=== PATIENT | female | born 1960 | race Caucasian/White ===

== ENCOUNTER 2018-11-28 20:12 | Emergency (ER) | payer OTHER ==
[2018-11-28 20:33] VITALS: BP 143/95
--- NOTE | 2018-11-28 20:50 | EDPHY ---
H & P Time Seen by Provider: 11/28/18 20:16 HPI/ROS: This patient injured her calf while hiking 6 hr prior to arrival with her daughter. She explains that she has deconditioned after a year of little exercise and weight gain and [place] with her feet dorsiflexed due to the angle of the incline when she decided to abruptly Sprint toward her daughter was up had and her for step she felt abrupt pop in the medial upper to mid right calf. She had fleeting sharp pain that was severe and since then has a mild discomfort to the area at rest and moderate discomfort with walking. Her daughter drove her here by private vehicle for evaluation of the symptoms. She took ibuprofen prior to arrival with partial relief and notes no other exacerbating factors. She did not fall from the episode ROS: Neuro: No numbness or tingling the affected leg Cardiovascular: No discoloration or significant swelling the affected leg Integumentary: No skin changes to the affected leg Musculoskeletal: No significant knee or ankle pain or swelling in the affected leg. No other injuries 5 point review of symptoms is performed and otherwise negative with exception of pertinent positives and negatives listed in HPI and ROS Past Medical/Surgical History: Obesity. Otherwise healthy Social History: She is visiting from [place] Smoking Status: Never smoked Physical Exam: Physical Exam Vital signs are normal. General: Pleasant obese 58-year-old female appears younger than her stated age No acute distress HEENT: Atraumatic. Eyes: Pupils equal and react to light. Extraocular motions are intact. Lungs: No respiratory distress. Cardiac: Brisk capillary refill is intact throughout. Pulses are 2+ and symmetric in the affected extremity. Skin: No rash or pallor. Extremities: Atraumatic normal except for right leg Right leg: Patient has tenderness to the upper medial right calf. Vega's test is negative for Achilles injury and she has no Achilles tenderness. There is no ecchymosis. Knee exam is normal ankle exam is normal skin is not discolored. Exam is otherwise within normal limits Neuro: Alert and oriented x3 with no sensorimotor deficits to the affected lower extremity. Initial differential diagnosis: Gastrocs anemia S muscle versus tendon tear, versus muscle strain Constitutional: Initial Vital Signs Temperature (C) 37.0 C 11/28/18 20:30 Heart Rate 80 11/28/18 20:30 Respiratory Rate 20 11/28/18 20:30 Blood Pressure 143/95 H 11/28/18 20:30 O2 Sat (%) 93 11/28/18 20:30 O2 Delivery Mode Room Air Allergies/Adverse Reactions: No Known Allergies Allergy (Unverified 11/28/18 20:29) Home Medications: Medication Instructions Recorded RX: Lisinopril 11/28/18 MDM/Departure - [facility] ED Course/Re-evaluation: Ice, Vasyl wrap Counseled this patient regarding muscle tear. She has no red flag findings on exam. Plan will be to limit activity, ice elevate Vasyl wrap follow up primary care physician for any ongoing symptoms. I advised her to avoid prolonged heat to the area and answered all her questions prior to discharge home - Depart Disposition: Home, Routine, Self-Care Clinical Impression: Gastrocnemius muscle tear Qualifiers: Encounter type: initial encounter Laterality: right Qualified Code(s): S86.111A - Strain of other muscle(s) and tendon(s) of posterior muscle group at lower leg level, right leg, initial encounter Condition: Good Instructions: Muscle Strain (ED) Additional Instructions: Diagnosis: Gastrocnemius muscle tear Plan: Ice 20 min at a time 3 times a day or more until all symptoms resolve Vasyl wrap to help control swelling. Elevate leg whenever possible Limit activity until symptoms improve. You may developed black and blue discoloration that extends anterior ankle over the course of the next 3-7 days. This may take up to 2 weeks to resolved. Gentle stretches daily as described. Ibuprofen Tylenol for pain control as needed. Avoid aspirin. Follow-up with primary care physician for any ongoing symptoms that persist beyond the next 2 weeks. Stand Alone Forms: Work Limited Duty, Work Excuse Referrals: CHEY POPE MD [Other] - As per Instructions
== END 2018-11-28 21:03 | disposition home or self-care (01) ==
LOC: CED 20:12
DX: S86.111A Strain of other muscle(s) and tendon(s) of posterior muscle group at lower leg level, right leg, initial encounter (principal); X50.0XXA Overexertion from strenuous movement or load, initial encounter; Y93.02 Activity, running; Y92.828 Other wilderness area as the place of occurrence of the external cause
CPT/HCPCS: 99283-ER